=== PATIENT | female | born 2000 | race Caucasian/White ===

== ENCOUNTER 2024-05-27 08:38 | Outpatient (REF) | payer BC, SELFPAY | END 2024-05-27 08:39 | disposition home or self-care (01) | LOC: HO.UMASIMG 08:38 | PROVIDERS: Visit Provider Registered Nurse | DX: Z13.89 Encounter for screening for other disorder (principal) ==

== ENCOUNTER 2025-05-26 08:54 | Outpatient (AMB) | payer BC, SELFPAY ==
--- NOTE | 2025-05-26 08:58 | A.OFFVIS_ITS ---
Vital Signs 3 05/26/25 09:01 Height 5 ft 7 in Weight 131 lb 2.801 oz BMI 20.5 BP 98/68 Blood Pressure Location Lt brachial Position Sitting Pulse 95 Pulse Source Pulse Oximeter Pulse Oximetry (%) 100 Oxygen Delivery Method Room Air Intake Visit Reasons: Emphysema Headmaster/Mistress Required: No Accompanied by: Mother Allergies albuterol Allergy (Intermediate, Verified 05/26/25 09:02) tachycardia HPI Comments Details: The patient is here for pulmonary evaluation. The patient is a 24-year-old lady with a history of asthma and significant allergies throughout her life. She was in her usual state health until over the summer when she started developing acute onset right-sided chest discomfort and shortness of breath. Ambulance was called she was admitted to [facility] where she had a chest x-ray demonstrating a spontaneous pneumothorax on the right side. She did have a small bore chest tube placed. Ultimately the patient did a CT scan of the chest at [facility] demonstrating paraseptal emphysema in addition to blebs. I did evaluate the CAT scan myself. She has no priors. The emphysema is pretty significant in the right upper lobe area moderate in severity. In his very asymmetrical where she has no evidence of any emphysema on the left hemithorax. 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 Because of the extent of the paraseptal emphysema the patient did have a thoracic surgery consultation. It was high risk for the patient to have a recurrent event so therefore she underwent a semi elective video-assisted thoracoscopy with blelectomy and pleurodesis. The patient tolerated procedure well she is recovering well she is starting to exercise regularly. The pathology demonstrated indeed that she had some degree of chronic inflammation, emphysema with early bolus disease and no evidence of any LINDSAY with negative HNB45. She does have a history of asthma throughout her life. She has required prednisone multiple times throughout her life. She also uses Pulmicort and also has a rescue inhaler. Although she has significant tachycardia and therefore does not tolerate albuterol. She has been on Xopenex. At baseline heart rate significantly elevated. I will send a Atrovent HFA that she can use as needed instead and she can continue with the inhaled corticosteroid. Because of the significant tachycardia in the emphysematous changes will have her get an echocardiogram. She gets very dyspneic with minimal activity. She used to play sports and would give significantly winded when running for few minutes. The patient will continue with the respiratory therapy as prescribed. She will continue exercise. She will refrain from any bowel feels or Valsalva maneuvers. She can continue to exercise regularly. The patient will follow-up in 2-3 months after the echocardiogram. If she has any issues prior to that she can always call for an earlier assessment. [facility] Medical History (Updated 05/26/25 @ 12:39 by Jeff Mae MD) Dyspnea Spontaneous pneumothorax Swyer-Juan syndrome Emphysema lung Tachycardia Asthma Social History (Updated 05/26/25 @ 09:06 by Felicia Meraz CMA) Patient Tobacco Use Status: Never used Tobacco Review of Systems Const Denies fever(s) Eyes Reports no additional complaints ENT Reports no additional complaints Card Denies chest pain, Reports palpitations and Reports dyspnea on exertion Resp Reports dyspnea on exertion and Reports wheezing Musc Reports no additional complaints Skin/Breast Denies rash Neuro Reports no additional complaints Endo Reports palpitations Humberto/Lymph Reports no additional complaints Aller/Immun Reports wheezing Physical Exam Vital Signs: Last Vital Signs Pulse 95 05/26/25 09:01 BP 98/68 05/26/25 09:01 Pulse Ox 100 05/26/25 09:01 Oxygen Delivery Method Room Air 05/26/25 09:01 BMI result Body Mass Index 20.5 Const General: comfortable HEENT Head: Yes normocephalic Neck Neck: Yes supple Chest Chest palpation & inspection: normal inspection of the chest Resp Effort & Inspection: normal respiratory effort Auscultation: clear to auscultation bilaterally Cardio Rate: tachycardic GI Palpation (GI): Soft to palpation Skin General skin exam: no rashes or lesions noted Extrem General: Yes no clubbing, cyanosis or edema Results Reviewed Results Reviewed: Assessment & Plan Assessment & Plan (1) Asthma: Code(s): J45.909 - Unspecified asthma, uncomplicated Category: Medical Qualifiers: Asthma complication type: uncomplicated Asthma persistence: persistent Asthma severity: moderate Qualified Code(s): J45.40 - Moderate persistent asthma, uncomplicated (2) Tachycardia: Code(s): R00.0 - Tachycardia, unspecified Category: Medical (3) Emphysema lung: Code(s): J43.9 - Emphysema, unspecified Category: Medical Qualifiers: Emphysema type: unilateral Qualified Code(s): J43.0 - 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] Category: Medical (5) Spontaneous pneumothorax: Code(s): J93.83 - Other pneumothorax Category: Medical (6) Dyspnea: Code(s): R06.00 - Dyspnea, unspecified Category: Medical Qualifiers: Dyspnea type: dyspnea on exertion Qualified Code(s): R06.09 - Other forms of dyspnea Plan continue Pulmocort start DOROTHY as needed ECHO Alpha 1 testing F/U 2-3 months Orders: Orders 2 CA echo transthoracic complete Today R00.0 - Tachycardia, unspecified, R06.00 - Dyspnea, unspecified Medications: New 2 ipratropium bromide 17 mcg/actuation (Atrovent HFA) 2 puffs inhalation Q8H 12.9 grams 8RF 30 days Coding Level of Care Code New Pt Level 5 (85680) Diagnoses Moderate persistent asthma without complication J45.40 Asthma complication type: uncomplicated Asthma persistence: persistent Asthma severity: moderate Tachycardia R00.0 Unilateral emphysema J43.0 Emphysema type: unilateral 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
[2025-05-26 09:01] VITALS: BP 98/68; PULSE 95; O2SAT 100; BMI 20.5
--- OUTSIDE RECORDS SUMMARY | 2025-05-26 09:55 | XMS_ITS | Encounter Summary ---
Author Organization [facility] Address [address] [place] [address] Phone Care Team Providers Care Waiter/Waitress Cabin Class Name Role Phone Cate Sarah NP Primary Care Provider [phone] Reason for Visit * Reason Comments Med Refill Encounter Details Date Type Department Care Team (Late st Contact Info) Description 01/22/2020 [facility]ill [facility] [address] [id number] Cate Sarah NP [address] [place] [address] Irregular menses Social History Tobacco Use Types Packs/Day Years Used Date Smoking Tobacco: Never Smokeless Tobacco: Never Alcohol Use Standard Drinks/Week Comments No 0 (1 standard drink = 0.6 oz pur e alcohol) Hunger/Food Answer Date Recorded No 03/12/2019 Stable Housing Answer Date Recorded No 07/29/2019 Transportation Concerns Answer Date Rec orded No 03/12/2019 Hazards in Home Answer Date Recorded No 03/12/2019 Financing Utilities Answer Date Recorde d No 03/12/2019 Safety at Home Answer Date Recorded No 03/12/2019 Outside Support Answer Date Recorded No 03/12/2019 Understanding Health Concerns Answer Da te Recorded No 03/12/2019 Financing Health Concerns Answer Date R ecorded No 03/12/2019 Missing School or Work Answer Date Andrew rded No 03/12/2019 Comments No Sex and Gender Information Value Date Recorded Sex Assigned at Female 07/12/2021 9:45 AM EST Legal Sex Female 6:25 PM EDT Gender Identity Female 07/12/2021 9:45 AM EST Sexual Orientation Straight 07/12/2021 9: 45 AM EST documented as of this encounter Miscellaneous Notes * Telephone Encounter - Cate Sarah NP - 01/25/2020 10:48 AM EDT Rx sent * Telephone Encounter - Grace Arana MA - 01/22/2020 1:00 PM EDT Request for refill on norgestimate-ethinyl estradiol (TRI-SPRINTEC) 0.18/0.215/0.25 MG-35 MCG per tablet () Forward to Meena Sarah for review and send to the pharmacy documented in this encounter Plan of Treatment Not on file documented as of this encounter Visit Diagnoses Diagnosis Irregular menses Irregular menstrual cycle documented in this encounter Care Teams Waiter/Waitress Cabin Class Relationship Specialty Start Date End Date Cate Sarah NP [address] [facility] [place] [address] PCP - General Pediatrics 06/30/18 09/07/24 documented as of this encounter
--- OUTSIDE RECORDS SUMMARY | 2025-05-26 09:55 | XMS_ITS | Encounter Summary ---
Author Organization [facility] Address [address] [place] [address] Phone Care Team Providers Care Frame Polisher Name Role Phone Cate Sarah NP Primary Care Provider Encounter Details Date Type Department Care Team (Late st Contact Info) Description 12/14/2017 Conversion Encounter [facility] [address] [place] [address] Brandi Ramesh MD Social History Tobacco Use Types Packs/Day Years Used Date Smoking Tobacco: Never Assessed Comments Unknown Sex and Gender Information Value Date Recorded Sex Assigned at Female 07/12/2021 9:45 AM EST Legal Sex Female 6:25 PM EDT Gender Identity Female 07/12/2021 9:45 AM EST Sexual Orientation Straight 07/12/2021 9: 45 AM EST documented as of this encounter Plan of Treatment Not on file documented as of this encounter Visit Diagnoses Not on filedocumented in this encounter Care Teams Frame Polisher Relationship Specialty Start Date End Date Cate Sarah NP [address] [place] [address] PCP - General Pediatrics 06/30/18 09/07/24 documented as of this encounter
--- OUTSIDE RECORDS SUMMARY | 2025-05-26 09:55 | XMS_ITS | Encounter Summary ---
Author Organization [facility] Address [address] [place] [address] Phone Care Team Providers Care Hatch Boss Name Role Phone Cate Sarah NP Primary Care Provider [phone] Reason for Visit * Reason Comments Med Refill Encounter Details Date Type Department Care Team (Late st Contact Info) Description 04/06/2019 [facility]ill [facility] [address] [address] Isabel Matamoros MD Moderate persistent asthma with acute exacerbation (Primary Dx) Social History Tobacco Use Types Packs/Day Years Used Date Smoking Tobacco: Never Smokeless Tobacco: Never Alcohol Use Standard Drinks/Week Comments No 0 (1 standard drink = 0.6 oz pur e alcohol) Hunger/Food Answer Date Recorded No 03/12/2019 Stable Housing Answer Date Recorded 0 03/12/2019 Transportation Concerns Answer Date Rec orded No [...] encounter Miscellaneous Notes * Telephone Encounter - Aranza Cherry MA - 04/06/2019 1:06 PM EDT Refill request for Levalbuterol Inhaler Last [facility] was 03/12/19 Last refill was 06/30/18 with 2 refills Neb solution and prednisone prescribed today Please review and send if ok documented in this encounter Plan of Treatment Not on file documented as of this encounter Visit Diagnoses Diagnosis Moderate persistent asthma with acute exacerbation- Primary documented in this encounter Care Teams Hatch Boss Relationship Specialty Start Date End Date Cate Sarah NP [address] [place] [address] PCP - General Pediatrics 06/30/18 09/07/24 documented as of this encounter
--- OUTSIDE RECORDS SUMMARY | 2025-05-26 09:55 | XMS_ITS | Encounter Summary ---
Author Organization [facility] Address [address] [place] [address] Phone Care Team Providers Care Bundler Name Role Phone Cate Sarah NP Primary Care Provider [phone] Reason for Visit * Reason Comments Med Refill Encounter Details Date Type Department Care Team (Late st Contact Info) Description 01/13/2022 [facility]ill [facility] [address] [address] Rosa Hendrickson NP [address] [place] [address] [phone] Moderate persistent asthma with acute exacerbation Social History Tobacco Use Types Packs/Day Years Used Date Smoking Tobacco: Never Smokeless Tobacco: Never Alcohol Use Standard Drinks/Week Comments No 0 (1 standard drink = 0.6 oz pur e alcohol) Hunger/Food Answer Date Recorded In the last 12 months, did y ou or your family ever eat less than you felt you should because there wasn't enough money for food? No 07/11/2021 Stable Housing Answer Date Recorded Are you worried that in the next 2 months you may not have stable housing? No 07/11/2021 Transportation Concerns Answer Date Rec orded In the last 12 months, have you or your family ever had to go without healthcare because you didn't have a way to get there? No 07/11/2021 Hazards in Home Answer Date Recorded Think about the place you li ve. Do you have problems with any of the following? Pests (mice or roaches), mold, no/not working smoke detectors, water leaks, no window guards. No 2020 Financing Utilities Answer Date Recorde d In the last 12 months, has t he electric, gas, oil, or water company threatened to shut off your services in your home? No 07/11/2021 Safety at Home Answer Date Recorded Are you or your family worried about feeling saf e in your home? No 07/11/2021 Outside Support Answer Date Recorded Do you feel that you need mo re support from other people or programs to help you care for yourself or your family? No 07/11/2021 Understanding Health Concerns Answer Da te Recorded Do you need help understandi ng your or your child's healthcare needs (diagnosis, medications, plan, etc.)? No 07/11/2021 Financing Health Concerns Answer Date R ecorded In the last 12 months, was t here a time when your child needed to see a doctor or get medications or supplies but could not because of cost? No 07/11/2021 Missing School or Work Answer Date Andrew rded Did you or your child miss s chool or work because of a health problem that could have been avoided? No 07/11/2021 Comments No Sex and Gender Information Value Date Recorded Sex Assigned at Female 07/12/2021 9:45 AM EST Legal Sex Female 6:25 PM EDT Gender Identity Female 07/12/2021 9:45 AM EST Sexual Orientation Straight 07/12/2021 9: 45 AM EST documented as of this encounter Miscellaneous Notes * Telephone Encounter - Partha Crane MD - 01/14/2022 12:12 AM EDT Prescriptions reviewed and eprescribed to pharmacy * Telephone Encounter - Aranza Cherry MA - 01/13/2022 6:16 PM EDT Refill request for Levalbuterol [facility] 07/11/21 Refilled 10/02/21 Please review for Meena documented in this encounter Plan of Treatment Not on file documented as of this encounter Visit Diagnoses Diagnosis Moderate persistent asthma with acute exacerbation documented in this encounter Care Teams Bundler Relationship Specialty Start Date End Date Cate Sarah NP [phone] [facility] [place] [address] PCP - General Pediatrics 06/30/18 09/07/24 documented as of this encounter
--- OUTSIDE RECORDS SUMMARY | 2025-05-26 09:56 | XMS_ITS | Encounter Summary ---
Author Organization [facility] Address [address] [place] [address] Phone Care Team Providers Care Superintendent Service Name Role Phone Cate Sarah NP Primary Care Provider [phone] Encounter Details Date Type Department Care Team (Late st Contact Info) Description 08/28/2009 Documentation [facility] [address] [place] [address] Family Medicine, Physician [facility] [place] [facility] [place] [address] Social History Tobacco Use Types Packs/Day Years [...] on filedocumented in this encounter Care Teams Superintendent Service Relationship Specialty Start Date End Date Cate Sarah NP [address] [place] [address] PCP - General Pediatrics 06/30/18 09/07/24 documented as of this encounter
--- OUTSIDE RECORDS SUMMARY | 2025-05-26 09:56 | XMS_ITS | Clinical Summary ---
Author Organization [facility] Address [address] [place] [id number] Phone Care Team Providers Care Core Extruder Name Role Phone Unavailable Primary Care Provider Unavailabl e Allergies Active Allergy Reactions Criticality Noted Date Comments Albuterol 03/19/2021 tachycardia, dizziness Environmental 02/10/2018 Wasp, Yellow Jacket, Hornet Food 09/04/2018 Pears cherries pineapple sugar peas apples peppers carrots gluten wheat peanut almond pecan sesame coconut Medications loratadine 10 MG tablet Take 10 mg by mouth daily. Active fluticasone 50 MCG/ACT nasal sprayIndications :Seasonal allergic rhinitis due to pollen Administer 1 spray into each nostril daily. 1 Units 1 1 Active budesonide (Pulmicort Flexhaler) 180 MCG/ACT inhalerIndicatio ns:Moderate persistent asthma with acute exacerbation Inhale 2 puffs 2 (two) times a day. Rinse mouth with water after use, do not swallow. 1 each 3 2 Active EPINEPHrine 0.3 MG/0.3ML injection syringeIndicatio ns:History of anaphylaxis Inject into muscle immediately for signs of anaphylaxis AND call 911. Repeat if symptoms worsen/recur or if uncertain medicine was given 4 each 1 3 Active levalbuterol (Xopenex) 0.31 MG/3ML nebulizer solutionIndicati ons:Moderate persistent asthma with acute exacerbation Take 1 ampule by nebulization every 4 (four) hours as needed for wheezing or shortness of breath. 150 mL 3 3 Active hydrOXYzine 25 MG tabletIndication s:Anxiety take up to twice daily for anxiety 30 tablet 1 3 Active norgestimate-eth inyl estradiol (Jps-Rc-Xlydyszl ) 0.18/0.215/0.25 MG-25 MCG per tabletIndication s:Irregular menses Take 1 tablet by mouth once daily. 84 tablet 3 3 Active levalbuterol 45 MCG/ACT inhalerIndicatio ns:Moderate persistent asthma with acute exacerbation Inhale 1-2 puffs every 6 (six) hours as needed for wheezing or shortness of breath. 15 g 4 Active Active Problems Problem Noted Date Diagnosed Date Wears glasses 10/24/2022 Overview (10/24/2022): myopia Multiple food allergies 12/12/2020 Overview (10/24/2022): Allergy to nuts, multiple fruits and veggies Moderate persistent asthma with acute exacerbati on 06/15/2020 Overview (10/02/2021): 10/01/21 seen at Urgent Care and started on prednisone and needs RF for Pulmicort Flexhaler. 10/02/21 Assessment & Plan (10/24/2022 8:49 AM EDT): Xopenex inhaler and for nebulizer. Pulmicort as preventative Assessment & Plan (07/01/2022 12:14 PM EST): Currently well controlled, continue current regime. Assessment & Plan (07/12/2021 9:42 AM EST): No recent issues. Assessment & Plan (06/15/2020 6:56 PM EST): To take prednisone as directed. To use xopenex q 4 hours prn cough/wheeze/SOB. It appears she may need the xopenex q 4 hours today. Can stop pulmicort while taking prednisone. To restart pulmicort when stops prednisone. To RTC Friday for abhilash lungs. To call if sxs worsen/no improvement. History of anaphylaxis 06/06/2020 Assessment & Plan (10/24/2022 8:41 AM EDT): Last visit with vehicle cost engineer 03/18 MICHELE. Has updated epi pen Assessment & Plan (06/06/2020 3:26 PM EST): Refills on Epi-Pen sent. Encouraged f/u with vehicle cost engineer. Acne vulgaris 12/16/2018 Assessment & Plan (10/24/2022 9:04 AM EDT): Has appt with [facility] 11/17. Using differin face wash Assessment & Plan (05/31/2021 4:50 PM EDT): Recommended dermatology consult at this time. Numbers provided. Assessment & Plan (06/29/2020 1:00 PM EST): Plan to discontinue the doxycycline as she has experienced side effects without significant benefit. At this time, will refer to dermatology for further management. Assessment & Plan (06/06/2020 3:26 PM EST): Responding well to doxycycline. Assessment & Plan (05/04/2020 10:44 AM EDT): Will start doxycycline BID. Reviewed increased photosensitivity and risk for esophagitis - take with a full glass of water and remain upright for 1 hr after taking. Will f/u in 1 month. Assessment & Plan (04/13/2020 4:50 PM EDT): Acne has not responded to OCPs, if anything, is worse. Primary goal at this time is to stable her anxiety. We will restart the fluoextine and f/u in 2 weeks, also asked her to schedule an appointment with gynecology. We may consider starting doxy or minocycline. Assessment & Plan (08/12/2019 9:54 AM EST): Will add clindamycin topically for inflammatory lesions. Consider restarting the tretinoin and going slowly - start every 3 days, advance to every 2 days, up to nightly. F/u if symptoms do not respond, also possible that that this will improve as she continues the Tri-Sprintec. Assessment & Plan (12/16/2018 3:36 PM EDT): Recommend BP 10% wash to back/chest in the shower. Rx for tretinoin 0.025% for face sent to pharmacy. Anxiety 11/25/2018 Assessment & Plan (05/22/2023 9:50 AM EDT): Does not feel that an SSRI is needed at this point. Typically experiences increased anxiety around times of transition and has found hydroxyzine to be helpful for feelings of panic. F/u if not helping or with other concerns. Assessment & Plan (07/25/2021 8:20 PM EST): Will discontinue citalopram and start sertraline, 1/2 tab daily x 1 week, then increase to 1 tab daily. F/u for med check in 3 weeks, to call sooner with concerns or side effects. Assessment & Plan (07/12/2021 9:41 AM EST): Fluoxetine really has not seemed to have an effect for , though still at a relatively low dose. Discussed increasing vs. trying a different SSRI and opts for the latter. Will start citalopram 10 mg and f/u in 2 weeks for med check. Ok to stop the fluoxetine and start the citalopram now. Hydroxyzine prn for breakthrough panic attacks, continue with therapist. To let me know if experiencing any side effects of the citalopram prior to visit. Assessment & Plan (09/20/2020 10:57 AM EST): Will obtain labs to look for organic cause of GI symptoms, though there seems to be a strong anxiety component. We could consider increasing her fluoxetine to 30 mg, but she needs to be taking the 20 mg consistently daily. It has been very helpful for her in the past. She has a lot of nighttime panic and will try hydroxyzine for that purpose. I think it is important to work with a therapist on the anxiety she has surrounding going off to college. Mom says that they have had a lot of issues finding a therapist, ending up on wait lists, and by the time Hannah's name comes up, is feeling better. Hannah saw Stacie Smith in our office once in the past and liked her, would be interested in seeing her again. Also suggested mom look into [facility] through [employer] (Hannah lives in [place] but attends [employer] through school choice). Will f/u with lab results once received. We could consider a GI appointment if her symptoms are not improving despite better management of her anxiety. Assessment & Plan (06/06/2020 3:27 PM EST): Doing well on 20 mg fluoxetine. Assessment & Plan (05/04/2020 10:43 AM EDT): Good initial response to fluoxetine 20 mg and tolerating well. Will f/u in 4 weeks. Assessment & Plan (04/13/2020 4:52 PM EDT): Will restart fluoxetine as she tolerated it well and seemed to have some improvement. I would like her to reestablish with a therapist, either Stacie Smith here, or [facility]. Hannah aware to contact me with any changes/worsening on the fluoxetine prior to our appointment. Assessment & Plan (08/12/2019 9:51 AM EST): Responding well to fluoxetine 20 mg, will plan to continue. Assessment & Plan (06/29/2019 2:22 PM EST): I prefer to make one medication at a time and Hannah is in agreement. Will start with the OCP change and f/u in 4 weeks to revisit the fluoxetine, sooner with changes or concerns. Recommended changing her fluoxetine to the AM. Assessment & Plan (03/12/2019 10:24 AM EDT): Doing well on fluoxetine: has A therapist sees every month at the [facility] Assessment & Plan (12/16/2018 3:35 PM EDT): Fair amount of improvement in her anxiety, but modest to no change in her mood. As she has been tolerating without side effects, will increase to 20 mg with f/u in 4 weeks, sooner by phone if any concerns arise. Assessment & Plan (12/02/2018 6:40 PM EDT): Hannah reports some improvement in her anxiety and no concerns for side effects nor worsening on the fluoxetine. Will continue at 10 mg and treat her for sinusitis, f/u in 2 weeks, sooner with changes or concerns. Assessment & Plan (11/25/2018 7:22 PM EDT): Will start 10 mg of fluoxetine and recheck in 1 week. Continue with therapist - Hannah prefers to continue with online therapist rather than try to locate a new local therapist. Discussed risk for worsening symptoms, suicidal thought in children/teens on SSRIs. Hannah agrees to inform her mom if any changes or worsening occur. Irregular menses 08/05/2017 Assessment & Plan (10/24/2022 8:54 AM EDT): On control Assessment & Plan (07/12/2021 9:42 AM EST): Last couple of months have been better on the Qpz-Zz-Bevjsmjq, will plan to continue for now. Assessment & Plan (05/31/2021 4:50 PM EDT): Still no improvements on the switch to a lower estrogen formulation which was switched 12/15. I recommend consulting with gynecology at this time for further guidance and recommendations as she would still like to be on hormonal control. Hannah also asks about the possibility of her being infertile due to her irregular and painful periods and what her options would be if she were, I suggest that she speak with the beam dyer about this as well. Numbers provided. Assessment & Plan (12/06/2020 1:48 PM EDT): Not great evidence to support which controls might contribute to breast growth. Offered to try an OCP with lower dose estrogen, and Hannah agrees. If it is not helpful, will refer to gynecology for their recommendations. Assessment & Plan (06/06/2020 3:30 PM EST): Advised Hannah that there is no good evidence that doxycycline cancels out control, so she can continue if she wants to take it. Per Up-To-Date, rifampin is the only antibiotic that affects control efficacy. Assessment & Plan (04/13/2020 4:53 PM EDT): As we have tried a couple of different OCPs, I would like her to see gynecology and she will call to schedule an appointment. Assessment & Plan (08/12/2019 9:56 AM EST): BTB is improved on Tri-Sprintec, will plan to continue. Assessment & Plan (06/29/2019 2:18 PM EST): Per Up-To-Date, some evidence that less unscheduled bleeding occurs with triphasic pills than monophasic, therefore will change OCP to Tri-Sprintec. not interested in LARC at this time. Will f/u in 4 weeks to check in and discuss fluoxetine. To call sooner with any concerns. If change is not helpful will consider referral to gynecology. Assessment & Plan (02/10/2018 12:05 PM EDT): Much improved. Increase in breast size has leveled off a bit, also a genetic predisposition. No great evidence that changing progestin or dose of estrogen will have an effect on breast size. Will f/u if concerns persist. Seasonal allergic rhinitis due to pollen 016 Assessment & Plan (10/24/2022 8:43 AM EDT): Zyrtec or abe Assessment & Plan (06/15/2020 2:27 PM EST): Continue allergy medication and flonase. Assessment & Plan (06/06/2020 3:33 PM EST): Asked Hannah to use the Flonase daily in addition to the saline rinses. Doxycycline should provide good coverage for sinuses. Call me if no improvement in 1 week to discuss. Assessment & Plan (02/10/2018 12:06 PM EDT): Well controlled currently. This spring was bad, school considered 504 to keep her in cooler rooms. Mom will call if they decide to pursue and they need any documentation from me. Resolved Problems Problem Noted Date Diagnosed Date Resolved Date Tension type headache 07/12/20212022 Assessment & Plan (07/12/2021 9:46 AM EST): Carrying a lot of tension in her neck/shoulders/upper back - all muscular. Recommended PT, Hannah will call to set up. Periumbilical abdominal pain 09/20/2020 07/01/2022 Mild intermittent asthma without complication 02/07/20 17 07/12/2021 Assessment & Plan (06/06/2020 3:25 PM EST): Paper rx given for portable nebulizer. To contact office if having difficulty locating one. Assessment & Plan (04/13/2020 4:53 PM EDT): No recent issues. Assessment & Plan (06/30/2018 3:23 PM EST): Refills sent for Xopenex. F/u if symptoms worsen or persist, if requiring Xopenex more frequently than q 4 hours or symptoms not responding. Assessment & Plan (02/10/2018 12:06 PM EDT): Well controlled. Immunizations Immunization Administration Dates Next Due COVID-19 Pfizer, monovalent, 12+ years 1 DTaP 10/12/2007, 4,03/22/2003,01/19,2002 Hep A, ped/adol 03/12/2019,02/10/2018 Hep B, ped/adol 06/20/2003,2002,2002 Hib (PRP-T) 12/20/2003, 3,01/19/2003,11/22 IPV 10/12/2007, 3,01/19/2003,11/22 Influenza, injectable, quadrivalent 05/11/2012,1 07/30/2009,04/29/2009 Influenza, injectable, quadr ivalent, preservative free 05/31/2021,04/13/2020,04/04/2014,06/17,04/05/2011 MMR 09/27/2003 MMRV 10/20/2006 Meningococcal Conj (Menactra) MCV4P 03/12/2019,0 11/11/2013 PPD Test 11/07/2020 Pneumococcal Conjugate 2004,2002,01/19/2003,11/22 Td (adult) (MBL), 2 Lf tetan us toxoid, PF, adsorbed 01/01/2020 Tdap 11/11/2013 Varicella 09/27/2003 Family History Medical History Relation Name Comments Depression Father Substance abuse Father Urolithiasis Father No Known Problems Mother Sera No Known Problems Paternal Grandfather Obesity Paternal Grandmother Asthma Sister Jojo exercise induce d Raynaud syndrome Sister Jojo Relation Name Status Comments Father Alive Father's Brother Alive healthy Maternal Grandfather Other mom ado pted Maternal Grandmother Other mom ado pted Mother Sera Alive h/o anxiety/dep ression Paternal Grandfather Alive Paternal Grandmother Alive Sister Jojo Alive Social History Tobacco Use Types Packs/Day Years Used Date Smoking Tobacco: Never Smokeless Tobacco: Never Alcohol Use Standard Drinks/Week Comments No 0 (1 standard drink = 0.6 oz pur e alcohol) Hunger/Food Answer Date Recorded In the last 12 months, did y ou or your family ever eat less than you felt you should because there wasn't enough money for food? No 10/24/2022 Stable Housing Answer Date Recorded Are you worried that in the next 2 months you may not have stable housing? No 10/24/2022 Transportation Concerns Answer Date Rec orded In the last 12 months, have you or your family ever had to go without healthcare because you didn't have a way to get there? No 10/24/2022 Hazards in Home Answer Date Recorded Think about the place you li ve. Do you have problems with any of the following? Pests (mice or roaches), mold, no/not working smoke detectors, water leaks, no window guards. No 2022 Financing Utilities Answer Date Recorde d In the last 12 months, has t he electric, gas, oil, or water company threatened to shut off your services in your home? No 10/24/2022 Safety at Home Answer Date Recorded Are you or your family worried about feeling saf e in your home? No 10/24/2022 Outside Support Answer Date Recorded Do you feel that you need mo re support from other people or programs to help you care for yourself or your family? No 10/24/2022 Understanding Health Concerns Answer Da te Recorded Do you need help understandi ng your or your child's healthcare needs (diagnosis, medications, plan, etc.)? No 10/24/2022 Financing Health Concerns Answer Date R ecorded In the last 12 months, was t here a time when your child needed to see a doctor or get medications or supplies but could not because of cost? No 10/24/2022 Missing School or Work Answer Date Andrew rded Did you or your child miss s chool or work because of a health problem that could have been avoided? No 10/24/2022 Comments No Sex and Gender Information Value Date Recorded Sex Assigned at Female 07/12/2021 9:45 AM EST Legal Sex Female 6:25 PM EDT Gender Identity Female 07/12/2021 9:45 AM EST Sexual Orientation Straight 07/12/2021 9: 45 AM EST Last Filed Vital Signs Vital Sign Reading Time Taken Comments Blood Pressure 112/74 10/24/2022 8:22 AM EDT Pulse 90 10/02/2021 8:38 AM EST Temperature 36.3 C (97.3 F) 08/30/2022 8:58 AM EST Respiratory Rate - - Oxygen Saturation 99% 10/02/2021 8:38 AM EST Inhaled Oxygen Concentration - - Weight 64 kg (141 lb) 10/24/2022 8:22 AM EDT Height 166.4 cm (5' 5.5 ) 10/24/2022 8:22 AM EDT Body Mass Index 23.11 10/24/2022 8:22 AM EDT Plan of Treatment Health Maintenance Due Date Last Done Comments HPV Vaccines (1 - 3-dose series) 2017 Men B Vaccine (1 of 2 - Standard) 2018 Influenza Vaccines (#1) 2025 05/31/20 21, 04/13/2020, 04/04/2014, Additional history exists COVID-19 Vaccine (3 - 2024-2 6 season) 2025 03/08/2021, 02/15/2021 DTaP,Tdap,and Td Vaccines (8 - Td or Tdap) 12/31/2029 01/01/2020, 11/11/2013, 10/12/2007, Additional history exists Hepatitis B Vaccines Completed 06/20/2003, 2002, 2002 HIB Vaccines Completed 12/20/2003, 02/26, 01/19/2003, Additional history exists Pneumococcal Vaccine Completed 2004, 03/22/2003, 01/19/2003, Additional history exists MMR Vaccines Completed 10/20/2006, 09/27/2003 Varicella Vaccines Completed 10/20/2006, 09/27/2003 IPV Vaccines Completed 10/12/2007, 05/29, 01/19/2003, Additional history exists Hepatitis A Vaccines Completed 03/12/2019, 02/11/20 18 Meningococcal Vaccine Completed 03/12/2019, 014 Procedures * Due to [place] [employer] law, this organization might not be sharing sensitive test results. Procedure Name Priority Date/Time Associated Diagnosis Comments CHLAMYDIA AND GONORRHEA, AMPLIFIED Routine 10/24/2022 10:01 AM EDT Encounter for screening examination for sexually transmitted disease from Last 3 Months or Most Recently Relevant to Health Maintenance Results * Due to [place] [employer] law, this organization might not be sharing sensitive test results. * Chlamydia and Gonorrhoea, Amplified (10/24/2022 10:01 AM EDT) Chlamydia Trachomatis, DNA Probe NEGATIVE (NEG) [facility] Comment: No Chlamydia Trachomatis RNA detected in this patient's sample (REFERENCE RANGE/NORMAL VALUE: NOT DETECTED) Note: This test uses millwright helper- mediated amplification method to detect rRNA from C. Trachomatis URINE GC AMP PROBE NEGATIVE (NEG) [facility] Comment: No Neisseria Gonorrhoeae RNA detected in this patient's sample (REFERENCE RANGE/NORMAL VALUE: NOT DETECTED) NOTE: This test uses millwright helper-mediated amplification method to detect rRNA from N.Gonorrhoeae. A negative result does not preclude infection. In the case of a negative urine result, testing of an endocervical(female) or urethral (male) specimen is recommended if there is high clinical suspicion of infection. Due to very high sensitivity of Nucleic Acid Amplification Test, false positive results may occur. Therefore, specimen handling is extremely important. In patients in whom the disease is unlikely, additional sample for testing should be considered after an initial positive result. The performance characteristics of this test have not been evaluated in children. The Aptima Combo2 assay is not intended for the evaluation of suspected sexual abuse or for other medico-legal indications. The ordering provider should assess if the patient had consensual sex without risk of sexual abuse. Consult the [facility] if needed. Contact phone number . Therapeutic failure or success cannot be determined with the Aptima Combo2 assay since nucleic acid may persist following appropriate antimicrobial therapy. The Centers for Disease Control and Prevention (CDC) recommends confirmatory retesting using culture or a different nucleic acid amplification test when positive results occur, if indicated. Testing performed or reported by [facility], a Service of [facility], [address] [place] [place] [address] [place] [address] Deric Mendoza MD, [place] [facility]# [id number] Urine (Urine) 10/24/2022 10: 01 AM EDT 10/24/2022 3:18 PM EDT us Carlota Huizar MD LAB MICROBIOLOGY - GENERAL ORDER ROBBY Final Result [facility] from Last 3 Months or Most Recently Relevant to Health Maintenance Insurance BS [facility] [employer] [facility] [employer]
--- OUTSIDE RECORDS SUMMARY | 2025-05-26 09:56 | XMS_ITS | Encounter Summary ---
Author Organization [facility] Address [address] [place] [phone] Phone Care Team Providers Care Respiratory Therapy Manager Name Role Phone Cate Sarah NP Primary Care Provider [phone] Reason for Visit * Reason Comments Med Refill Encounter Details Date Type Department Care Team (Late st Contact Info) Description 09/24/2021 Refill [facility] [address] [place] [address] Cate Sarah NP [address] [place] [address] Irregular menses Social History Tobacco Use Types [...] cycle documented in this encounter Care Teams Respiratory Therapy Manager Relationship Specialty Start Date End Date Cate Sarah NP [address] [place] [address] PCP - General Pediatrics 06/30/18 09/07/24 documented as of this encounter
--- OUTSIDE RECORDS SUMMARY | 2025-05-26 09:56 | XMS_ITS | Encounter Summary ---
Author Organization [facility] Address [address] [place] [id number] Phone Care Team Providers Care Communications Consultant Name Role Phone Cate Sarah NP Primary Care Provider [phone] Reason for Visit * Reason Comments Med Refill Encounter Details Date Type Department Care Team (Late st Contact Info) Description 09/27/2021 [facility]ill [facility] [address] [address] Cate Sarah NP [address] [place] [address] [phone] Anxiety Social History Tobacco Use Types Packs/Day Years [...] Telephone Encounter - Cate Sarah NP - 09/27/2021 2:30 PM EST Rx reviewed, approved, and sent to pharmacy. * Telephone Encounter - Aranza Cherry MA - 09/27/2021 1:14 PM EST Appt made 10/03/21 6 pm * Telephone Encounter - Aranza Cherry MA - 09/27/2021 1:09 PM EST Call to Hannah She works 8-5 M-F I offered to provide a note for work Sent to appt line * Telephone Encounter - Cate Sarah NP - 09/27/2021 11:21 AM EST Needs an appt, has not been seen since making the switch to sertraline. If she schedules, I will send rx * Telephone Encounter - Aranza Cherry MA - 09/27/2021 8:09 AM EST Refill request for Sertraline 25mg Last [facility] 07/11/21 Med check 07/25/21 Cancelled 2 med checks Last refill 08/22/21 I will call Hannah Please review documented in this encounter Plan of Treatment Not on file documented as of this encounter Visit Diagnoses Diagnosis Anxiety Anxiety state, unspecified documented in this encounter Care Teams Communications Consultant Relationship Specialty Start Date End Date Cate Sarah NP [address] [facility] [place] [address] PCP - General Pediatrics 06/30/18 09/07/24 documented as of this encounter
== END 2025-05-26 09:52 | disposition home or self-care (01) ==
LOC: HO.HPS 08:55
PROVIDERS: PCP Nurse Practitioner Family; Referring Provider Thoracic Surgery (Cardiothoracic Vascular Surgery); Visit Provider Hospitalist
DX: J45.40 Moderate persistent asthma, uncomplicated (principal); R00.0 Tachycardia, unspecified; J43.0 Unilateral pulmonary emphysema [MacLeod's syndrome]; J93.83 Other pneumothorax; R06.09 Other forms of dyspnea
CPT/HCPCS: 99204